=== PATIENT | male | born 1995 | race Caucasian/White ===

== ENCOUNTER 2018-05-26 18:07 | Emergency (ER) | payer BC ==
[~2018-05-26] VITALS: Ht 177.8 cm; Wt 79.4 kg
[2018-05-26 18:27] VITALS: BP 138/110
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
--- NOTE | 2018-05-26 20:09 | RAD ---
HAND LEFT 2V History: Post splint Comparison: Exam the same day Findings: 2 views left hand are submitted. There is now overlying splint material. Previously seen fourth metacarpal fracture is more more difficult to visualize on this exam due to splint material. Impression: 1. Previously seen fourth metacarpal fracture is more difficult to visualize due to splint material. Electronically signed by: Timbo Ogden MD (05/26/2018 8:06 PM) [facility]
== END 2018-05-26 20:15 | disposition home or self-care (01) ==
LOC: ER 18:07
DX: S62.355A Nondisplaced fracture of shaft of fourth metacarpal bone, left hand, initial encounter for closed fracture (principal); W23.1XXA Caught, crushed, jammed, or pinched between stationary objects, initial encounter; Y93.39 Activity, other involving climbing, rappelling and jumping off; Y92.89 Other specified places as the place of occurrence of the external cause; Y99.8 Other external cause status
CPT/HCPCS: 29125; 73120; 73130; 99284

== ENCOUNTER 2018-09-21 10:56 | Emergency (ER) | payer BC ==
[~2018-09-21] VITALS: Ht 177.8 cm; Wt 74.8 kg
[2018-09-21] MEDS ORDERED: IV NORMAL SALINE 1,000ML 1,000 ML IV SCH (11:16)
[2018-09-21 11:32] LABS: BASO # 0.1 x10^3/uL (0.0-0.2); BASO % 1 % (0-3); EOS # 0.3 x10^3/uL (0.0-0.7); EOS % 5 % (0-3); HEMATOCRIT 43.3 % (39.0-53.0); HEMOGLOBIN 14.7 g/dL (13.0-17.5); LYMPH # 1.8 x10^3/uL (1.0-4.8); LYMPH % 27 % (24-48); MEAN CORPUSCULAR HEMOGLOBIN 29 pg (25-35); MEAN CORPUSCULAR HGB CONC 34 g/dL (31-37); MEAN CORPUSCULAR VOLUME 86 fL (79-100); MONO # 0.5 x10^3/uL (0.0-1.1); MONO % 7 % (0-9); NEUT % 60 % (31-73); PLATELET COUNT 283 x10^3/uL (140-400); RED BLOOD COUNT 5.06 x10^6/uL (4.30-5.70); RED CELL DISTRIBUTION WIDTH 12.8 % (11.5-14.5); WHITE BLOOD COUNT 6.6 x10^3/uL (4.0-11.0)
[2018-09-21 11:42] LABS: BACTERIA,URINE 0 /HPF (0-FEW); BILIRUBIN,URINE NEG (NEG); CLARITY,URINE CLEAR; COLOR,URINE STRAW; GLUCOSE,URINE NEG (NEG); NITRITE,URINE NEG (NEG); RBC,URINE 0 /HPF (0-2); UROBILINOGEN,URINE 0.2 mg/dL (0.2 mg/dL); WBC,URINE 0 /HPF (0-4)
--- NOTE | 2018-09-21 11:44 | RAD ---
CT HEAD WO CONTRAST Indication: Headache. Exposure: One or more of the following individualized dose reduction techniques were utilized for this examination: 1. Automated exposure control 2. Adjustment of the mA and/or kV according to patient size 3. Use of iterative reconstruction technique. Comparison: None FINDINGS: No evidence of acute intracranial hemorrhage, mass effect, midline shift or abnormal extra-axial fluid collection. Murphy-white matter distinction is intact. Ventricles and sulci are symmetric. Orbits unremarkable. No large scalp hematoma. Sinuses appear clear. No evidence of acute skull abnormality. IMPRESSION: No evidence of acute intracranial hemorrhage or mass effect. Consider outpatient MRI for further workup if symptoms persist. Electronically signed by: Leonidas Huerta MD (09/21/2018 11:39 AM) [facility]
[2018-09-21 11:48] LABS: AMPHETAMINE/METHAMPHETAMINE NEG (NEG); BARBITURATES NEG (NEG); BENZODIAZEPINES NEG (NEG); CANNABINOIDS NEG (NEG); COCAINE NEG (NEG); METHADONE NEG (NEG); OPIATES NEG (NEG); PHENCYCLIDINE NEG (NEG)
[2018-09-21 11:48] LABS: ALBUMIN 4.3 g/dL (3.4-5.0); ALBUMIN/GLOBULIN RATIO 1.3 (1.0-1.7); CALCIUM 9.1 mg/dL (8.5-10.1); GFR 91.8; POTASSIUM 3.7 mmol/L (3.5-5.1); TOTAL BILIRUBIN 0.2 mg/dL (0.2-1.0); TOTAL PROTEIN 7.7 g/dL (6.4-8.2)
[2018-09-21] MEDS ORDERED: NAPR-683 PO (12:12)
--- NOTE | 2018-09-21 12:13 | PHYS DOC ---
Past History Past Medical History: No Pertinent History Past Surgical History: Tonsillectomy Alcohol Use: Occasionally Drug Use: None Adult General Chief Complaint Chief Complaint: DIZZY/LIGHT HEADED HPI HPI Patient is a 23 year old male who presents with complaining of not feeling good and headache and dizziness. Patient states that for the last 1 week he feels weak and tries to eat Street with improvement of his condition. Patient with continuing with several loose stool. Patient states he ate a doughnut today and incidentally improvement of his weakness felt more weak and dizzy. Patient also complaining of frontal headache for the last 3 days as a constant aching pain with mild blurred vision. Patient states he is urinating more than his usual and his concern for possible diabetic because of history of diabetes in his mother and father. Patient denies cough and congestion, fever and chills, neck pain, injury, using drugs or alcohol. Review of Systems Review of Systems Constitutional: Denies fever or chills [] Eyes: Denies change in visual acuity, redness, or eye pain [] HENT: Denies nasal congestion or sore throat [] Respiratory: Denies cough or shortness of breath [] Cardiovascular: No additional information not addressed in HPI [] GI: Denies abdominal pain, nausea, vomiting, bloody stools, reports diarrhea [] : Denies dysuria or hematuria [] Musculoskeletal: Denies back pain or joint pain [] Integument: Denies rash or skin lesions [] Neurologic: Reports dizziness and headache, denies focal weakness or sensory changes [] Endocrine: Denies polyuria or polydipsia [] All other systems were reviewed and found to be within normal limits, except as documented in this note. Current Medications Current Medications Current Medications Medications (Trade) Dose Ordered Sig/Kayden Start Time Stop Time Status Last Admin Dose Admin Sodium Chloride 1,000 ml @ 1,000 mls/hr Q1H 09/21/18 11:16 09/21/18 12:15 09/21/18 11:41 1,000 MLS/HR Allergies Allergies Allergies Coded Allergies Type Severity Reaction Last Updated Verified No Known Drug Allergies 11/23/14 No Physical Exam Physical Exam Constitutional: Well developed, well nourished, mild acute distress, non-toxic appearance. [] HENT: Normocephalic, atraumatic, bilateral external ears normal, oropharynx moist, no oral exudates, nose normal. [] Eyes: PERRLA, EOMI, conjunctiva normal, no discharge. [] Neck: Normal range of motion, no tenderness, supple, no stridor. [] Cardiovascular:Heart rate regular rhythm, no murmur [] Lungs & Thorax: Bilateral breath sounds clear to auscultation [] Abdomen: Bowel sounds normal, soft, no tenderness, no masses, no pulsatile masses. [] Skin: Warm, dry, no erythema, no rash. [] Back: No tenderness, no CVA tenderness. [] Extremities: No tenderness, no cyanosis, no clubbing, ROM intact, no edema. [] Neurologic: Alert and oriented X 3, normal motor function, normal sensory function, no focal deficits noted. [] Psychologic: Affect normal, judgement normal, mood normal. [] Current Patient Data Vital Signs Vital Signs Date Time Temp Pulse Resp B/P (MAP) Pulse Ox O2 Delivery O2 Flow Rate FiO2 09/21/18 11:05 98.8 92 16 100 Room Air Lab Results Laboratory Tests Test 09/21/18 11:06 09/21/18 11:15 09/21/18 11:18 Glucose (Fingerstick) 84 mg/dL (70-99) White Blood Count 6.6 x10^3/uL (4.0-11.0) Red Blood Count 5.06 x10^6/uL (4.30-5.70) Hemoglobin 14.7 g/dL (13.0-17.5) Hematocrit 43.3 % (39.0-53.0) Mean Corpuscular Volume 86 fL (79-100) Mean Corpuscular Hemoglobin 29 pg (25-35) Mean Corpuscular Hemoglobin Concent 34 g/dL (31-37) Red Cell Distribution Width 12.8 % (11.5-14.5) Platelet Count 283 x10^3/uL (140-400) Neutrophils (%) (Auto) 60 % (31-73) Lymphocytes (%) (Auto) 27 % (24-48) Monocytes (%) (Auto) 7 % (0-9) Eosinophils (%) (Auto) 5 % (0-3) H Basophils (%) (Auto) 1 % (0-3) Neutrophils # (Auto) 4.0 x10^3uL (1.8-7.7) Lymphocytes # (Auto) 1.8 x10^3/uL (1.0-4.8) Monocytes # (Auto) 0.5 x10^3/uL (0.0-1.1) Eosinophils # (Auto) 0.3 x10^3/uL (0.0-0.7) Basophils # (Auto) 0.1 x10^3/uL (0.0-0.2) Sodium Level 141 mmol/L (136-145) Potassium Level 3.7 mmol/L (3.5-5.1) Chloride Level 105 mmol/L (98-107) Carbon Dioxide Level 28 mmol/L (21-32) Anion Gap 8 (6-14) Blood Urea Nitrogen 11 mg/dL (8-26) Creatinine 1.0 mg/dL (0.7-1.3) Estimated GFR (Cockcroft-Gault) 91.8 BUN/Creatinine Ratio 11 (6-20) Glucose Level 85 mg/dL (70-99) Lactic Acid Level 1.5 mmol/L (0.4-2.0) Calcium Level 9.1 mg/dL (8.5-10.1) Total Bilirubin 0.2 mg/dL (0.2-1.0) Aspartate Amino Transferase (AST) 18 U/L (15-37) Alanine Aminotransferase (ALT) 16 U/L (16-63) Alkaline Phosphatase 72 U/L (46-116) Troponin I Quantitative < 0.017 ng/mL (0-0.055) Total Protein 7.7 g/dL (6.4-8.2) Albumin 4.3 g/dL (3.4-5.0) Albumin/Globulin Ratio 1.3 (1.0-1.7) Lipase 103 U/L (73-393) Urine Collection Type Unknown Urine Color Straw Urine Clarity Clear Urine pH 6.5 Urine Specific [place] <=1.005 Urine Protein Neg (NEG-TRACE) Urine Glucose (UA) Neg mg/dL (NEG) Urine Ketones (Stick) Neg mg/dL (NEG) Urine Blood Neg (NEG) Urine Nitrite Neg (NEG) Urine Bilirubin Neg (NEG) Urine Urobilinogen Dipstick 0.2 mg/dL (0.2 mg/dL) Urine Leukocyte Esterase Neg (NEG) Urine RBC 0 /HPF (0-2) Urine WBC 0 /HPF (0-4) Urine Squamous Epithelial Cells None /LPF Urine Bacteria 0 /HPF (0-FEW) Urine Opiates Screen Neg (NEG) Urine Methadone Screen Neg (NEG) Urine Barbiturates Neg (NEG) Urine Phencyclidine Screen Neg (NEG) Urine Amphetamine/Methamphetamine Neg (NEG) Urine Benzodiazepines Screen Neg (NEG) Urine Cocaine Screen Neg (NEG) Urine Cannabinoids Screen Neg (NEG) Urine Ethyl Alcohol Neg (NEG) EKG EKG [] Radiology/Procedures Radiology/Procedures [address] [id number] IMAGING REPORT Signed PATIENT: LILIA CARIAS ACCOUNT: [id number] : 1995 LOCATION: ER AGE: 23 SEX: M EXAM STATUS: REG ER ORD. PHYSICIAN: KATIE FORD MD REASON: headache PROCEDURE: CT HEAD WO CONTRAST CT HEAD WO CONTRAST Indication: Headache. Exposure: One or more of the following individualized dose reduction techniques were utilized for this examination: 1. Automated exposure control 2. Adjustment of the mA and/or kV according to patient size 3. Use of iterative reconstruction technique. Comparison: None FINDINGS: No evidence of acute intracranial hemorrhage, mass effect, midline shift or abnormal extra-axial fluid collection. Murphy-white matter distinction is intact. Ventricles and sulci are symmetric. Orbits unremarkable. No large scalp hematoma. Sinuses appear clear. No evidence of acute skull abnormality. IMPRESSION: No evidence of acute intracranial hemorrhage or mass effect. Consider outpatient MRI for further workup if symptoms persist. Electronically signed by: Leonidas Huerta MD (09/21/2018 11:39 AM) [facility] DICTATED AND SIGNED BY: LEONIDAS HUERTA MD DATE: 09/21/18 1135 CC: KATIE FORD MD; PCP,NO ~ Course & Med Decision Making Course & Med Decision Making Pertinent Labs and Imaging studies reviewed. (See chart for details) Evaluation of patient in ER showed 23-year-old male patient with complaining of generalized weakness and diarrhea and headache and dizziness. Patient had unremarkable physical exam. Patient had mild orthostatic vital signs and treated with IV fluid and Toradol and felt better. CT head and labs was unremarkable. Patient informed about plan of treatment for viral illness and diarrhea. Dragon Disclaimer Dragon Disclaimer This electronic medical record was generated, in whole or in part, using a voice recognition dictation system. Departure Departure: Impression: Primary Impression: Viral illness Additional Impressions: Diarrhea Generalized weakness Tobacco abuse Tobacco abuse counseling Head ache Disposition: HOME, SELF-CARE (12 7) Condition: IMPROVED Referrals: PCP,NO (PCP) Patient Instructions: Diarrhea, Diet for Diarrhea, Adult, Dizziness, Smoking Cessation, Tips For Success, Viral Syndrome Additional Instructions: Drink plenty of liquids Follow-up with your primary care physician in 3-5 days Return to ER if not getting better Scripts Naproxen (NAPROSYN) 500 Mg Tablet 500 MG PO BID for pain, #20 TAB Prov: KATIE FORD MD 09/21/18 Problem Qualifiers KATIE FORD MD Sep 21, 2018 12:13
[2018-09-21] MEDS ORDERED: KETOROLAC 30 MG/ML VIAL. IV ONE (12:15)
[2018-09-21 12:39] VITALS: BP 123/82
== END 2018-09-21 12:45 | disposition home or self-care (01) ==
LOC: ER 10:56
DX: B34.9 Viral infection, unspecified (principal); R53.1 Weakness; R19.7 Diarrhea, unspecified; R51 Headache; Z72.0 Tobacco use; Z71.6 Tobacco abuse counseling
CPT/HCPCS: 36415; 70450; 80053; 80307; 81001; 82947; 83605; 83690; 84484; 85025; 96361; 96374; 99284; J1885; J7030